=== PATIENT | male | born 1975 | race Caucasian/White ===

== ENCOUNTER 2017-09-29 10:45 | Inpatient (IN) | payer MEDICAID, SELFPAY ==
[2017-09-29 10:47] VITALS: BP 145/95; PULSE 98; RESP 16; TEMP 36.5; O2SAT 96; BMI 25.8
--- NOTE | 2017-09-29 11:20 | ED.DCSUM_ITS ---
- ER Visit Summary Date of Service: 09/29/17 Chief Complaint: [] Alcohol and Valium abuse requesting detox History of Present Illness: The patient is a 41 M [] long history of alcohol and Valium abuse, history of a PE diagnosed March 2017 is currently on Eliquis. He is here with his sister patient and sister report that basically he has been has a long history of alcohol abuse he drinks at least 30 beers a day he supposed to be taking Valium as needed 10 twice daily for anxiety and depression however he has been abusing the Valium long-standing per the sister, he presents today because he indicated to family he is tired of being addicted and wanted detox the sister reports they spoke with [facility] yesterday they were told to bring him in yesterday he was brought in today he has had no fever no cough no chest pain no abdominal pain, he denies any other history indicates he does not know why he had a DVT there is no history of suicidal ideation, he occasionally uses marijuana and has experimented in the distant past with amphetamines but basically he abuses alcohol as above and Valium He woke today felt slightly jittery drink 10 beers and took two 10 mg Valium tablets and then came to the emergency department Physical Examination: [] His vital signs are within normal limits he is awake and alert his sisters in the room there is no psychomotor agitation his HEENT exam is unremarkable the neck is supple the lungs are clear the heart tones are unremarkable abdomen soft nontender is moving all 4 extremities there is no tremor his speech is easy to understand Test Results: [] Emergency Department Course and Treatment: [] His complaints screening labs are obtained, hugo lyon is not available to do an assessment on him today per staff Screening labs unremarkable his tox screen shows alcohol and benzodiazepine see all of his reports, had a long conversation with the sister and the patient apparently she is under the impression that he needs to be admitted medically based on our conversation with hugo ly[facility], she is concerned that if he is discharged home, they live an hour away, he will eventually withdrawal have complications from his drug abuse, and again based on her conversation with hugo lyon she indicates they told her he might require medical admission given his heavy alcohol abuse and the benzodiazepine abuse given all that I have contacted the hospitalist service to the patient for further management options remains awake and alert with no complaints no psychomotor agitation or tremor or confusion Treatment Plan: [] Disposition: [] Admission pending evaluation by hospitalist concern for withdrawal Impression: [] Alcohol and benzodiazepine abuse This note was generated with iodine dictation software. It may contain incorrect words, spelling, and punctuation that were not noted in review of the chart prior to signing ED Disposition - Plan for ED Patient: Chief Complaint: Subst Abuse Referrals: [facility] Doctor,Out of [NON-STAFF] -
[2017-09-29 11:43] LABS: Absolute Lymphocyte Count 0.97 X10^3/ul (0.83-4.51); Absolute Neutrophil Count 4.7 X10^3/uL (2.0-7.7); Basophil# 0.01 X10^3/uL; Basophil% 0.2 % (0-1); Eosinophil# 0.04 X10^3/uL; Eosinophils% 0.6 % (0-5); Hemoglobin 14.8 g/dl (13.0-16.5); Lymphocyte # 0.97 X10^3/ul (4.0); Lymphocyte % 15.7 % (19-41); Mean Corp Hgb Conc 33.6 g/gl (32-36); Mean Corpuscular Hgb 31.6 pg (27.0-32.0); Mean Corpuscular Volume 93.8 fL (80-94); Mean Platelet Vol. 9.7 fl (6.2-12.0); Monocyte# 0.49 X10^3/uL; Monocyte% 7.9 % (0-10); Neutrophil # 4.67 X10^3/uL (2.7-7.7); Neutrophil % 75.6 % (47-70); Platelet Count 180 K/mm3 (150-450); RBC Distribution Width CV 13.8 % (11.6-14.6); RBC Distribution Width SD 47.3 fl (35.1-43.9); Red Blood Count 4.69 M/mm3 (4.6-6.2); White Blood Count 6.2 K/mm3 (4.4-11.0)
[2017-09-29 11:45] LABS: Bacteria 0 SEEN /hpf (None Seen); Mucous, Urine 0 SEEN /hpf (<or=2+); Red Blood Cells-Urine 0 SEEN /hpf (0-5); Squamous Epithelial Cells - UA 0 SEEN /hpf (0-5); White Blood Cells 0 SEEN /hpf (0-5)
[2017-09-29 11:46] LABS: POSITIVE COUNT NO; POSITIVE DIFFERENTIAL NO; POSITIVE MORPHOLOGY NO
[2017-09-29 11:47] LABS: Color, Urine Yellow (Yellow); Glucose, Dipstick Normal (Normal); Ketone-Dipstick Negative (Negative); Leukocyte Esterase-Dipstick Negative /ul (Negative); Nitrite-Dipstick Negative (Negative); Occult Blood-Urine Negative /ul (Negative); Protein-Dipstick Negative (Negative); Specific Gravity, Urine 1.005 (1.002-1.030); Urine Bilirubin Dipstick Negative (Negative); Urine Clarity Clear (Clear); Urine Urobilinogen Normal (Normal)
[2017-09-29 11:58] LABS: ALB/GLOB Ratio 0.9 RATIO (0.9-2.4); AST(SGOT) 52 U/L (15-37); Alanine Aminotransfer ALT/SGPT 45 U/L (16-61); Albumin, Serum 3.7 g/dL (3.2-5.0); Alkaline Phosphatase 85 U/L (45-117); Anion Gap 8 (5-15); BUN 5 mg/dL (7-18); BUN/Creat Ratio 7.4 RATIO (10-20); Calcium,Total 8.9 mg/dL (8.5-10.1); Chloride 104 mmol/L (98-107); Creatinine, Serum 0.68 mg/dL (0.70-1.30); EST Glomerular Filtration Rate 137 mL/min (>60); Est Glom Filt Rate - Afr Amer 166 mL/min (>60); Globulin 4.3 g/dL (2.2-4.2); Glucose 93 mg/dL (74-106); Potassium 3.4 mmol/L (3.5-5.1); Sodium Level 139 mmol/L (136-145)
[2017-09-29 12:02] LABS: Amphetamine Urine VISTA NEGATIVE (<1000 ng/mL); Barbiturate Urine VISTA NEGATIVE (< 200 ng/mL); Benzodiazepine Urine VISTA POSITIVE (< 200 ng/mL); Cocaine Urine VISTA NEGATIVE (< 300 ng/mL); Ecstacy Urine VISTA NEGATIVE (< 500 ng/mL); Methadone Urine VISTA NEGATIVE (< 300 ng/mL); PCP Urine VISTA NEGATIVE (< 25 ng/mL); THC Urine VISTA NEGATIVE (< 50 ng/mL); Vista UDS pH Range 6
--- NOTE | 2017-09-29 12:42 | HP.PCM_ITS ---
Problem List (1) History of pulmonary embolus (PE) Status: Chronic (2) Alcohol dependence syndrome Status: Chronic (3) Benzodiazepine dependence, continuous Status: Chronic (4) Depression Status: Chronic (5) Tobacco dependence Status: Chronic (6) Alcohol use Status: Acute History of Present Illness Date of Admission: 09/29/17 Chief Complaint: Alcohol and benzodiazepine use The patient is a 41 year old M with past medical history significant for polysubstance abuse including alcohol as well as benzodiazepine, history of pulmonary embolism who presented to the emergency department wanting to detox. Patient apparently contacted Chetan Callaway earlier on in the week to seek assistance with regards to his substance abuse. He presented to the emergency department wanting to detox. His last alcohol use was on the day of his admission. He admits his drinking almost 30 cans of beer on a daily basis. He is also on benzodiazepines and is apparently weaning himself off his last use also on the day of admission have been taking 10 mg of Valium. Discussions were held with the patient in the emergency department regarding management decisions and the dilemma in view of his continued use of benzos and the fact that he may not be able to be weaned off the benzos on this we find an accepting primary care physician who will be agreeable to help him wean off. In any case decision was made to admit patient with plans to consult Chetan Callaway in a.m. to assist. Past Medical History Past Medical History (Chronic Problems): Chronic Problems History of pulmonary embolus (PE) (Chronic) Alcohol dependence syndrome (Chronic) Benzodiazepine dependence, continuous (Chronic) Depression (Chronic) Tobacco dependence (Chronic) Allergies No Known Allergies Allergy (Verified 09/29/17 10:46) Home Medications: Ambulatory Orders Medication Instructions Recorded Apixaban [Eliquis] 5 mg PO DAILY 09/29/17 Diazepam [Diazepam] 10 mg PO DAILY PRN PRN 09/29/17 Smoking Status: Current every day smoker - *Family History Maternal History Items: No pertinent history Review of Systems Constitutional: Denies: Anorexia, Chills, Fever, Night Sweats, Weight Change HEENT: Denies: Head Aches, Sinus Congestion, Sinus Drainage Cardiovascular: Denies: Chest Pain, Orthopnea, Palpitations, Paroxysmal Noc. Dyspnea Respiratory: Denies: Cough, Shortness of breath at rest, Shortness of breath upon exertion, Sputum production Gastrointestinal: Denies: Abdominal Pain, Hematemesis, Hematochezia, Nausea, Melena, Vomiting Genitourinary: Denies: Dysuria, Frequency, Hematuria, Urgency Musculoskeletal: Denies: Joint Pain, Joint Tenderness Psychiatric: Reports: Anxiety, Depression Hematologic/ Lymphatic: Denies: Easy Bruising, Easy Bleeding VTE Information - Inpt Only VTE Present on Admission: No VTE Pharm Prophylaxis ordered?: Yes Patient Problems: Active and Suspected Problems Alcohol use (Acute) Objective: GENERAL: Appears anxious with some tremors at rest. HEENT: Clear conjunctiva, NECK; supple, normal thyroid, CHEST: Diminished to auscultation bilaterally, HEART: Regular S1 S2, no audible murmurs ABDOMEN: soft, non-tender, normoactive bowel sounds, RECTAL: deferred EXTREMITIES: No edema, no clubbing, no cyanosis. [employer]OR: Awake, no lateralizing signs. SKIN: No rash - Physical Exam Vital Signs Temp Pulse Resp BP Pulse Ox 97.7 F L 98 16 145/95 H 96 09/29/17 10:47 09/29/17 10:47 09/29/17 10:47 09/29/17 10:47 09/29/17 10:47 Oxygen Delivery Method Room Air Weight: 81.647 kg Body Mass Index (BMI) 25.8 Laboratory Tests Past 24 Hrs 09/29/17 09/29/17 09/29/17 11:35 11:35 11:35 WBC 6.2 RBC 4.69 Hgb 14.8 Hct 44.0 MCV 93.8 MCH 31.6 MCHC 33.6 RDW 13.8 RDW Differential 47.3 H Plt Count 180 MPV 9.7 Immature Gran % (Auto) 0.000 Neut % (Auto) 75.6 H Lymph % (Auto) 15.7 L Dare % (Auto) 7.9 Eos % (Auto) 0.6 Baso % (Auto) 0.2 Absolute Neuts (auto) 4.7 Absolute Lymphs (auto) 0.97 Total Counted Not Reportable Sodium 139 Potassium 3.4 L Chloride 104 Carbon Dioxide 27.0 Anion Gap 8 BUN 5 L Creatinine 0.68 L Estim Creat Clear Calc 149.10 Est GFR (MDRD) Af Amer 166 Est GFR (MDRD) Non-Af 137 BUN/Creatinine Ratio 7.4 L Glucose 93 Calcium 8.9 Total Bilirubin 0.40 AST 52 H ALT 45 Alkaline Phosphatase 85 Total Protein 8.0 Albumin 3.7 Globulin 4.3 H Albumin/Globulin Ratio 0.9 Urine Color Urine Clarity Urine pH Ur Specific [place] Urine Protein Urine Glucose (UA) Urine Ketones Urine Occult Blood Urine Nitrite Urine Bilirubin Urine Urobilinogen Ur Leukocyte Esterase Urine RBC Urine WBC Ur Squamous Epith Cells Urine Bacteria Urine Mucus Urine Opiates Screen Urine Methadone Screen Ur Barbiturates Screen Ur Phencyclidine Scrn Ur Amphetamines Screen U Methamphetamin-MDMA U Benzodiazepines Scrn Urine Cocaine Screen U Cannabinoids Screen Ur Drug Screen Comment Ethyl Alcohol 172.0 09/29/17 09/29/17 11:40 11:40 WBC RBC Hgb Hct MCV MCH MCHC RDW RDW Differential Plt Count MPV Immature Gran % (Auto) Neut % (Auto) Lymph % (Auto) Dare % (Auto) Eos % (Auto) Baso % (Auto) Absolute Neuts (auto) Absolute Lymphs (auto) Total Counted Sodium Potassium Chloride Carbon Dioxide Anion Gap BUN Creatinine Estim Creat Clear Calc Est GFR (MDRD) Af Amer Est GFR (MDRD) Non-Af BUN/Creatinine Ratio Glucose Calcium Total Bilirubin AST ALT Alkaline Phosphatase Total Protein Albumin Globulin Albumin/Globulin Ratio Urine Color Yellow Urine Clarity Clear Urine pH 6.0 Ur Specific [place] 1.005 Urine Protein Negative Urine Glucose (UA) Normal Urine Ketones Negative Urine Occult Blood Negative Urine Nitrite Negative Urine Bilirubin Negative Urine Urobilinogen Normal Ur Leukocyte Esterase Negative Urine RBC 0 SEEN Urine WBC 0 SEEN Ur Squamous Epith Cells 0 SEEN Urine Bacteria 0 SEEN Urine Mucus 0 SEEN Urine Opiates Screen NEGATIVE Urine Methadone Screen NEGATIVE Ur Barbiturates Screen NEGATIVE Ur Phencyclidine Scrn NEGATIVE Ur Amphetamines Screen NEGATIVE U Methamphetamin-MDMA NEGATIVE U Benzodiazepines Scrn POSITIVE H Urine Cocaine Screen NEGATIVE U Cannabinoids Screen NEGATIVE Ur Drug Screen Comment Ethyl Alcohol Assessment/Plan Active and Suspected Problems Alcohol use (Acute) Patient is a 41 year old gentleman with history of polysubstance abuse including Valium and alcohol who presented to the emergency department seeking assistance with detoxification 1. Acute alcohol abuse with early signs of withdrawal. Patient was offered the option of being admitted to be initiated on the [facility] alcohol withdrawal protocol. At the time of my dictation patient was still deciding whether to stay or to go home 2. Benzodiazepine with intermittent use of Valium did discuss with patient and the sister who were in the room to reach out to his primary care physician who apparently prescribes the Valium to assist with a tapering with regards to the weaning 3. History of bilateral pulmonary embolism 5 months ago patient was seen and managed at [facility] on Eliquis 5 mg p.o. twice daily resume 4. Tobacco dependence counseled on cessation, offered nicotine patch for tobacco cravings Code Visit Inpatient E&M: 52139 Init Hosp L3
[2017-09-29 13:56] VITALS: BP 132/87; PULSE 97; RESP 18; TEMP 36.6; O2SAT 97; BMI 26.6; BMI 26.7
[2017-09-29 14:00] VITALS: BP 132/87; PULSE 97; RESP 18; TEMP 36.6
[2017-09-29] MEDS: cloNIDine HCl 0.1 MG Tablet PO ×3 (14:24→21:52)
[2017-09-29] MEDS: LORazepam 1 MG Tablet PO ×3 (14:33→21:51)
[2017-09-29] MEDS: Lactated Ringers 1,000 ML 125 ML IV (14:33)
[2017-09-29 17:33] VITALS: BP 137/86; PULSE 97; RESP 16; TEMP 36.4; O2SAT 98
[2017-09-29 17:36] VITALS: BP 137/86; PULSE 97; RESP 16; TEMP 36.4
[2017-09-29] MEDS: Ondansetron ODT 4 MG Tablet PO (17:40)
[2017-09-29 21:44] VITALS: BP 145/97; PULSE 66; RESP 16; TEMP 36.6; O2SAT 98
[2017-09-29] MEDS: traZODone 50 MG Tablet PO (21:53)
[2017-09-29] MEDS: APIXABAN 5 MG TABLET PO (21:54)
[2017-09-30] VITALS (7 sets, daily range): BP systolic 107–145; BP diastolic 67–101; PULSE 61–77; RESP 16–18; TEMP 36.4–37; O2SAT 97–100
[2017-09-30] MEDS: cloNIDine HCl 0.1 MG Tablet PO ×6 (02:19→22:04)
[2017-09-30] MEDS: LORazepam 1 MG Tablet PO ×5 (02:19→22:04)
[2017-09-30] MEDS: Multivitamins,Ther W-Minerals Tablet 1 TABLET PO (08:47)
[2017-09-30] MEDS: Folic Acid 1 MG Tablet PO (08:47)
[2017-09-30] MEDS: Thiamine Hydrochloride 100 MG Tablet PO (08:47)
--- NOTE | 2017-09-30 10:00 | PCM.PN.HOSP ---
Patient Problems: Active and Suspected Problems Alcohol use (Acute) Subjective: Feeling better, but still with nausea--no vomiting. Vitals/I&O's: Vital Signs Temp Pulse Resp BP Pulse Ox 36.4 C L 72 16 130/85 H 99 09/30/17 06:00 09/30/17 06:00 09/30/17 06:00 09/30/17 06:00 09/30/17 06:00 Oxygen Delivery Method Room Air Weight: 84.414 kg Body Mass Index (BMI) 26.6 Intake and Output for Last 24 Hours 09/28/17 09/29/17 09/30/17 23:59 23:59 23:59 Intake Total 621 / 621 1999 Balance 621 / 621 1999 General: Alert, Cooperative, No apparent distress HEENT: Atraumatic, Normocephalic Neck: No Nodes, Thyroid Normal Size and Texture Lungs: Clear to auscultation, Normal air movement, No rhonchi, No wheeze Cardiovascular: Regular rate, Regular Rhythm, Normal S1, Normal S2, No murmurs Abdomen: Bowel Sounds Present, Soft, Non Tender, Non-Distended, No Hepato-splenomegaly Extremities: No edema, No Calf Tenderness Skin: - - faint macules on upper chest with subtle excoriations. Musculoskeletal: No Tenderness to Palpation of Joints or Extremities Psych/Mental Status: Normal Affect, Appropriate Current Medications Acetaminophen (Tylenol) 500 mg PO Q4H PRN PRN PRN Reason: Temp > 100.4 F Al Hydroxide/Mg Hydroxide (Mylanta Ii) 30 ml PO Q6H PRN PRN PRN Reason: dyspesia Apixaban (Eliquis) 5 mg PO BID [facility] Last Admin: 09/29/17 21:54 Dose: 5 mg Bisacodyl (Dulcolax) 10 mg RECTAL DAILY PRN PRN Reason: Constipation Clonidine (Catapres) 0.1 mg PO Q4 [facility] Last Admin: 09/30/17 06:11 Dose: 0.1 mg Dicyclomine HCl (Bentyl) 20 mg PO Q6H PRN PRN PRN Reason: abdominal discomfort Folic Acid (Folic Acid) 1 mg PO DAILY@0800 [facility] Last Admin: 09/30/17 08:47 Dose: 1 mg Hydroxyzine Pamoate (Vistaril Pamoate Capsule) 50 mg PO Q6H PRN PRN PRN Reason: Mild Anxiety (score 1/3) Ibuprofen (Motrin) 600 mg PO Q8H PRN PRN PRN Reason: Mild-Moderate Pain (1-5/10) Loperamide HCl (Imodium) 2 - 4 mg PO UD PRN PRN Reason: LOOSE STOOLS Lorazepam (Ativan) 1 mg PO Q6H MARIA L PRN Reason: Taper Stop: 10/02/17 17:59 Last Admin: 09/30/17 06:12 Dose: 1 mg Magnesium Hydroxide (Milk Of Magnesia) 30 ml PO DAILY PRN PRN PRN Reason: Constipation Methocarbamol (Methocarbamol) 750 mg PO Q6H PRN PRN PRN Reason: Muscle Aches Multivitamins/Minerals ([facility]) [facility] Last Admin: 09/30/17 08:47 Dose: 1 tablet Nicotine (Nicoderm Cq (Pbkc)) 21 mg TRANSDERM. DAILY [facility] Last Admin: 09/29/17 14:32 Dose: 21 mg Ondansetron HCl (Zofran Odt) 4 mg PO Q6H PRN PRN PRN Reason: NAUSEA Last Admin: 09/29/17 17:40 Dose: 4 mg Pramipexole Dihydrochloride (Mirapex) 0.25 mg PO Q12H PRN PRN PRN Reason: Restless legs Quetiapine Fumarate (Seroquel) 25 mg PO Q6H PRN PRN PRN Reason: Moderate Anxiety (score 2/3) Senna (Senokot) 1 tablet PO QHS PRN PRN Reason: Constipation Sodium Chloride () 5 - 30 ml IV UD PRN PRN Reason: SALINE FLUSH Thiamine HCl (Vitamin B1) [facility] Last Admin: 09/30/17 08:47 Dose: 100 mg Trazodone HCl (Desyrel) 50 mg PO QHS [facility] Last Admin: 09/29/17 21:53 Dose: 50 mg Medical Necessity - Tobacco Use Smoking Status: Current every day smoker Assessment/Plan Active and Suspected Problems Alcohol use (Acute) 1. acute alcohol withdrawal. on ativan continue B12 and folate, no evidence of DTs at this time [facility] to see and assess. 2. chronic Benzodiazepine use pt states that he is prescribed it, but I could not find any evidence on [place] does state that recently, he has not been using it every day. will need to follow up with PCP about tapering it off over several weeks, if necessary 3. Skin lesions: self-reported i don't appreciate much did recommend he follow up with Dermatology (primarily for routine skin exam) Code Visit Inpatient E&M: 10336 Subs Hosp L2
--- NOTE | 2017-09-30 10:06 | PN_ITS ---
Patient Problems: Active and Suspected Problems Alcohol use (Acute) Subjective: Feeling better, but still with nausea--no vomiting. Vitals/I&O's: Vital Signs Temp Pulse Resp BP Pulse Ox 36.4 C L 72 16 130/85 H 99 09/30/17 06:00 09/30/17 06:00 09/30/17 06:00 09/30/17 06:00 09/30/17 06:00 Oxygen Delivery Method Room Air Weight: 84.414 kg Body Mass Index (BMI) 26.6 Intake and Output for Last 24 Hours 09/28/17 09/29/17 09/30/17 23:59 23:59 23:59 Intake Total 621 / 621 1999 Balance 621 / 621 1999 General: Alert, Cooperative, No apparent distress HEENT: Atraumatic, Normocephalic Neck: No Nodes, Thyroid Normal Size and Texture Lungs: Clear to auscultation, Normal air movement, No rhonchi, No wheeze Cardiovascular: Regular rate, Regular Rhythm, Normal S1, Normal S2, No murmurs Abdomen: Bowel Sounds Present, Soft, Non Tender, Non-Distended, No Hepato- splenomegaly Extremities: No edema, No Calf Tenderness Skin: - - faint macules on upper chest with subtle excoriations. Musculoskeletal: No Tenderness to Palpation of Joints or Extremities Psych/Mental Status: Normal Affect, Appropriate Current Medications Acetaminophen (Tylenol) 500 mg PO Q4H PRN PRN PRN Reason: Temp > 100.4 F Al Hydroxide/Mg Hydroxide (Mylanta Ii) 30 ml PO Q6H PRN PRN PRN Reason: dyspesia Apixaban (Eliquis) 5 mg PO BID [facility] Last Admin: 09/29/17 21:54 Dose: 5 mg Bisacodyl (Dulcolax) 10 mg RECTAL DAILY PRN PRN Reason: Constipation Clonidine (Catapres) 0.1 mg PO Q4 [facility] Last Admin: 09/30/17 06:11 Dose: 0.1 mg Dicyclomine HCl (Bentyl) 20 mg PO Q6H PRN PRN PRN Reason: abdominal discomfort Folic Acid (Folic Acid) 1 mg PO DAILY@0800 [facility] Last Admin: 09/30/17 08:47 Dose: 1 mg Hydroxyzine Pamoate (Vistaril Pamoate Capsule) 50 mg PO Q6H PRN PRN PRN Reason: Mild Anxiety (score 1/3) Ibuprofen (Motrin) 600 mg PO Q8H PRN PRN PRN Reason: Mild-Moderate Pain (1-5/10) Loperamide HCl (Imodium) 2 - 4 mg PO UD PRN PRN Reason: LOOSE STOOLS Lorazepam (Ativan) 1 mg PO Q6H MARIA L PRN Reason: Taper Stop: 10/02/17 17:59 Last Admin: 09/30/17 06:12 Dose: 1 mg Magnesium Hydroxide (Milk Of Magnesia) 30 ml PO DAILY PRN PRN PRN Reason: Constipation Methocarbamol (Methocarbamol) 750 mg PO Q6H PRN PRN PRN Reason: Muscle Aches Multivitamins/Minerals ([facility]ivitamin With Minerals) [facility] Last Admin: 09/30/17 08:47 Dose: 1 tablet Nicotine (Nicoderm Cq (Pbkc)) 21 mg TRANSDERM. DAILY [facility] Last Admin: 09/29/17 14:32 Dose: 21 mg Ondansetron HCl (Zofran Odt) 4 mg PO Q6H PRN PRN PRN Reason: NAUSEA Last Admin: 09/29/17 17:40 Dose: 4 mg Pramipexole Dihydrochloride (Mirapex) 0.25 mg PO Q12H PRN PRN PRN Reason: Restless legs Quetiapine Fumarate (Seroquel) 25 mg PO Q6H PRN PRN PRN Reason: Moderate Anxiety (score 2/3) Senna (Senokot) 1 tablet PO QHS PRN PRN Reason: Constipation Sodium Chloride () 5 - 30 ml IV UD PRN PRN Reason: SALINE FLUSH Thiamine HCl (Vitamin B1) [facility] Last Admin: 09/30/17 08:47 Dose: 100 mg Trazodone HCl (Desyrel) 50 mg PO QHS [facility] Last Admin: 09/29/17 21:53 Dose: 50 mg Medical Necessity - Tobacco Use Smoking Status: Current every day smoker Assessment/Plan Active and Suspected Problems Alcohol use (Acute) 1. acute alcohol withdrawal. * on ativan * continue B12 and folate, * no evidence of DTs at this time * [facility] to see and assess. 2. chronic Benzodiazepine use * pt states that he is prescribed it, but I could not find any evidence on [place] * does state that recently, he has not been using it every day. * will need to follow up with PCP about tapering it off over several weeks, if necessary 3. Skin lesions: * self-reported * i don't appreciate much * did recommend he follow up with Dermatology (primarily for routine skin exam) Code Visit Inpatient E&M: 40105 Subs Hosp L2
[2017-09-30] MEDS: APIXABAN 5 MG TABLET PO ×2 (10:38→22:05)
[2017-09-30] MEDS: traZODone 50 MG Tablet PO (22:05)
[2017-10-01] MEDS: LORazepam 1 MG Tablet PO ×5 (05:02→22:09)
[2017-10-01] MEDS: cloNIDine HCl 0.1 MG Tablet PO ×5 (05:02→22:09)
[2017-10-01 05:05] VITALS: BP 124/82; PULSE 62; RESP 16; TEMP 36.6
[2017-10-01 09:15] VITALS: BP 98/53; PULSE 72; RESP 18; TEMP 36.3; O2SAT 96
--- NOTE | 2017-10-01 09:23 | PCM.PN.HOSP ---
Patient Problems: Active and Suspected Problems Alcohol use (Acute) Subjective: Feeling better. Tolerating diet. Some tremulousness, but improved. Vitals/I&O's: Vital Signs Temp Pulse Resp BP Pulse Ox 36.3 C L 72 18 98/53 L 96 10/01/17 09:15 10/01/17 09:15 10/01/17 09:15 10/01/17 09:15 10/01/17 09:15 Oxygen Delivery Method Room Air Weight: 84.414 kg Body Mass Index (BMI) 26.6 Intake and Output for Last 24 Hours 09/29/17 09/30/17 10/01/17 23:59 23:59 23:59 Intake Total 621 / 621 2199 / 0 Balance 621 / 621 2199 / 0 General: Alert, Cooperative, No apparent distress HEENT: Atraumatic, Normocephalic Neck: No Nodes, Thyroid Normal Size and Texture Lungs: Clear to auscultation, Normal air movement, No rhonchi, No wheeze Cardiovascular: Regular rate, Regular Rhythm, Normal S1, Normal S2, No murmurs Abdomen: Bowel Sounds Present, Soft, Non Tender, Non-Distended Extremities: No edema, No Calf Tenderness Skin: No rashes, No breakdown Psych/Mental Status: Normal Affect, Appropriate Current Medications Acetaminophen (Tylenol) 500 mg PO Q4H PRN PRN PRN Reason: Temp > 100.4 F Al Hydroxide/Mg Hydroxide (Mylanta Ii) 30 ml PO Q6H PRN PRN PRN Reason: dyspesia Apixaban (Eliquis) 5 mg PO BID [facility] Last Admin: 09/30/17 22:05 Dose: 5 mg Bisacodyl (Dulcolax) 10 mg RECTAL DAILY PRN PRN Reason: Constipation Clonidine (Catapres) 0.1 mg PO Q4 [facility] Last Admin: 10/01/17 05:02 Dose: 0.1 mg Dicyclomine HCl (Bentyl) 20 mg PO Q6H PRN PRN PRN Reason: abdominal discomfort Folic Acid (Folic Acid) 1 mg PO DAILY@0800 [facility] Last Admin: 09/30/17 08:47 Dose: 1 mg Hydroxyzine Pamoate (Vistaril Pamoate Capsule) 50 mg PO Q6H PRN PRN PRN Reason: Mild Anxiety (score 1/3) Ibuprofen (Motrin) 600 mg PO Q8H PRN PRN PRN Reason: Mild-Moderate Pain (1-5/10) Loperamide HCl (Imodium) 2 - 4 mg PO UD PRN PRN Reason: LOOSE STOOLS Lorazepam (Ativan) 1 mg PO Q6H MARIA L PRN Reason: Taper Stop: 10/02/17 17:59 Last Admin: 10/01/17 05:02 Dose: 1 mg Magnesium Hydroxide (Milk Of Magnesia) 30 ml PO DAILY PRN PRN PRN Reason: Constipation Methocarbamol (Methocarbamol) 750 mg PO Q6H PRN PRN PRN Reason: Muscle Aches Multivitamins/Minerals ([facility] Min[facility]) [facility] Last Admin: 09/30/17 08:47 Dose: 1 tablet Nicotine (Nicoderm Cq (Pbkc)) 21 mg TRANSDERM. DAILY [facility] Last Admin: 09/30/17 10:38 Dose: 21 mg Ondansetron HCl (Zofran Odt) 4 mg PO Q6H PRN PRN PRN Reason: NAUSEA Last Admin: 09/29/17 17:40 Dose: 4 mg Pramipexole Dihydrochloride (Mirapex) 0.25 mg PO Q12H PRN PRN PRN Reason: Restless legs Quetiapine Fumarate (Seroquel) 25 mg PO Q6H PRN PRN PRN Reason: Moderate Anxiety (score 2/3) Senna (Senokot) 1 tablet PO QHS PRN PRN Reason: Constipation Sodium Chloride () 5 - 30 ml IV UD PRN PRN Reason: SALINE FLUSH Thiamine [facility] ([facility]amin B1) [facility] Last Admin: 09/30/17 08:47 Dose: 100 mg Trazodone HCl (Desyrel) 50 mg PO QHS [facility] Last Admin: 09/30/17 22:05 Dose: 50 mg Medical Necessity - Tobacco Use Smoking Status: Current every day smoker Assessment/Plan Active and Suspected Problems Alcohol use (Acute) 1. acute alcohol withdrawal. on ativan continue B12 and folate, no evidence of DTs at this time [facility] to see and assess. pt undecided on treatment plans at discharge. wean ativan. 2. chronic Benzodiazepine use pt states that he is prescribed it, but I could not find any evidence on [place] does state that recently, he has not been using it every day. will need to follow up with PCP about tapering it off over several weeks, if necessary 3. Skin lesions: self-reported i don't appreciate much did recommend he follow up with Dermatology (primarily for routine skin exam) Code Visit Inpatient E&M: 04409 Subs Hosp L2
[2017-10-01] MEDS: Thiamine Hydrochloride 100 MG Tablet PO (10:28)
[2017-10-01] MEDS: Folic Acid 1 MG Tablet PO (10:28)
[2017-10-01] MEDS: Multivitamins,Ther W-Minerals Tablet 1 TABLET PO (10:28)
[2017-10-01] MEDS: APIXABAN 5 MG TABLET PO ×2 (10:29→22:09)
[2017-10-01] MEDS: hydrOXYzine PAM 25 MG Capsule 50 MG PO ×2 (10:29→18:33)
[2017-10-01] MEDS: Dicyclomine 10 MG Capsule 20 MG PO (10:29)
[2017-10-01] MEDS: Magnesium Hydroxide 30 ML UDC PO (10:29)
[2017-10-01 14:46] VITALS: BP 112/66; PULSE 72; RESP 16; TEMP 36.4; O2SAT 97
[2017-10-01 18:27] VITALS: BP 125/77; PULSE 73; RESP 16; TEMP 36.3; O2SAT 100
[2017-10-01 22:06] VITALS: BP 129/92; PULSE 66; RESP 16; TEMP 37.2; O2SAT 96
[2017-10-01] MEDS: traZODone 50 MG Tablet PO (22:09)
[2017-10-02 04:10] LABS: HEPATITIS B SURFACE AG Negative (Negative); Hepatitis A IgM Antibody Negative (Negative); Hepatitis B Core AB IgM Negative (Negative)
[2017-10-02] MEDS: LORazepam 1 MG Tablet PO (05:59)
[2017-10-02] MEDS: cloNIDine HCl 0.1 MG Tablet PO ×2 (05:59→09:50)
[2017-10-02 06:01] VITALS: BP 126/78; PULSE 78; RESP 14; TEMP 36.6; O2SAT 94
[2017-10-02 08:00] VITALS: BP 120/78; PULSE 68; RESP 18; TEMP 36.9; O2SAT 98
[2017-10-02] MEDS: Thiamine Hydrochloride 100 MG Tablet PO (08:06)
[2017-10-02] MEDS: Multivitamins,Ther W-Minerals Tablet 1 TABLET PO (08:06)
[2017-10-02] MEDS: Folic Acid 1 MG Tablet PO (08:06)
--- NOTE | 2017-10-02 09:14 | PCM.PN.HOSP ---
Patient Problems: Active and Suspected Problems Alcohol use (Acute) Subjective: Feeling good. tolerating PO. less tremulousness. Vitals/I&O's: Vital Signs Temp Pulse Resp BP Pulse Ox 36.9 C 68 18 120/78 98 10/02/17 08:00 10/02/17 08:00 10/02/17 08:00 10/02/17 08:00 10/02/17 08:00 Oxygen Delivery Method Room Air Weight: 84.414 kg Body Mass Index (BMI) 26.6 Intake and Output for Last 24 Hours 09/30/17 10/01/17 10/02/17 23:59 23:59 23:59 Intake Total 2199 Balance 2199 General: Alert, Cooperative, No apparent distress HEENT: Atraumatic, Normocephalic Neurological: - - minimal tremulousness. Psych/Mental Status: Normal Affect, Appropriate Current Medications Acetaminophen (Tylenol) 500 mg PO Q4H PRN PRN PRN Reason: Temp > 100.4 F Al Hydroxide/Mg Hydroxide (Mylanta Ii) 30 ml PO Q6H PRN PRN PRN Reason: dyspesia Apixaban (Eliquis) 5 mg PO BID [facility] Last Admin: 10/01/17 22:09 Dose: 5 mg Bisacodyl (Dulcolax) 10 mg RECTAL DAILY PRN PRN Reason: Constipation Clonidine (Catapres) 0.1 mg PO Q4 [facility] Last Admin: 10/02/17 05:59 Dose: 0.1 mg Dicyclomine HCl (Bentyl) 20 mg PO Q6H PRN PRN PRN Reason: abdominal discomfort Last Admin: 10/01/17 10:29 Dose: 20 mg Folic Acid (Folic Acid) 1 mg PO DAILY@0800 [facility] Last Admin: 10/02/17 08:06 Dose: 1 mg Hydroxyzine Pamoate (Vistaril Pamoate Capsule) 50 mg PO Q6H PRN PRN PRN Reason: Mild Anxiety (score 1/3) Last Admin: 10/01/17 18:33 Dose: 50 mg Ibuprofen (Motrin) 600 mg PO Q8H PRN PRN PRN Reason: Mild-Moderate Pain (1-5/10) Loperamide HCl (Imodium) 2 - 4 mg PO UD PRN PRN Reason: LOOSE STOOLS Lorazepam (Ativan) 1 mg PO Q6H [facility] PRN Reason: Taper Stop: 10/04/17 13:44 Last Admin: 10/02/17 05:59 Dose: 1 mg Magnesium Hydroxide (Milk Of Magnesia) 30 ml PO DAILY PRN PRN PRN Reason: Constipation Last Admin: 10/01/17 10:29 Dose: 30 ml Methocarbamol (Methocarbamol) 750 mg PO Q6H PRN PRN PRN Reason: Muscle Aches Multivitamins/Minerals ([facility]ivitamin With Minerals) [facility] Admin: 10/02/17 08:06 Dose: 1 tablet Nicotine (Nicoderm Cq (Pbkc)) 21 mg TRANSDERM. DAILY [facility] Last Admin: 10/01/17 10:29 Dose: 21 mg Ondansetron HCl (Zofran Odt) 4 mg PO Q6H PRN PRN PRN Reason: NAUSEA Last Admin: 09/29/17 17:40 Dose: 4 mg Pramipexole Dihydrochloride (Mirapex) 0.25 mg PO Q12H PRN PRN PRN Reason: Restless legs Quetiapine Fumarate (Seroquel) 25 mg PO Q6H PRN PRN PRN Reason: Moderate Anxiety (score 2/3) Senna (Senokot) 1 tablet PO QHS PRN PRN Reason: Constipation Sodium Chloride () 5 - 30 ml IV UD PRN PRN Reason: SALINE FLUSH Thiamine HCl (Vitamin B1) [facility] [place] Last Admin: 10/02/17 08:06 Dose: 100 mg Trazodone HCl (Desyrel) 50 mg PO QHS [facility] Last Admin: 10/01/17 22:09 Dose: 50 mg Medical Necessity - Tobacco Use Smoking Status: Current every day smoker Assessment/Plan Active and Suspected Problems Alcohol use (Acute) 1. acute alcohol withdrawal. on ativan continue B12 and folate, no evidence of DTs at this time [facility] to see and assess. pt to go to [facility] 2. chronic Benzodiazepine use pt states that he is prescribed it, but I could not find any evidence on [place] does state that recently, he has not been using it every day. will need to follow up with PCP about tapering it off over several weeks, if necessary 3. Skin lesions: self-reported i don't appreciate much did recommend he follow up with Dermatology (primarily for routine skin exam)
--- NOTE | 2017-10-02 09:18 | PCM.DC ---
- Discharge Diagnoses Current Active Problems: Current Active and Chronic Problems History of pulmonary embolus (PE) (Chronic) Alcohol dependence syndrome (Chronic) Benzodiazepine dependence, continuous (Chronic) Depression (Chronic) Tobacco dependence (Chronic) Alcohol use (Acute) You will use the following diet at home:: No restrictions Your food should be the consistency of: Regular Discharge Activity: Return to Normal Activity Call your doctor if you observe: Fever of 101 or Higher, Shortness of breath Allergies/Adverse Reactions: Allergies No Known Allergies Allergy (Verified 09/29/17 10:46) Medications to take at Discharge Apixaban [Eliquis] 5 mg PO BID 09/29/17 Diazepam 10 mg PO DAILY PRN PRN 09/29/17 Primary Care Physician: Amira Watts,Out of [NON-STAFF] - Please Follow Up With: dermatology - routine skin exam. When: next 6 months Please Follow Up With: [facility] When: today Proposed Discharge Date: 10/02/17
--- NOTE | 2017-10-02 09:28 | DS.PCM_ITS ---
Discharge Date and Diagnosis - Problem List Patient Problems: Active and Suspected Problems Alcohol use (Acute) Date of Admission: 09/29/17 Date of Discharge: 10/02/17 - Primary Discharge Diagnosis Active and Suspected Problems Alcohol use (Acute) - Secondary Discharge Diagnosis Chronic Problems History of pulmonary embolus (PE) (Chronic) Alcohol dependence syndrome (Chronic) Benzodiazepine dependence, continuous (Chronic) Depression (Chronic) Tobacco dependence (Chronic) Hospital Course and Treatment Operations: None Procedures: None Summary of Care Provided: The patient is a 41 year old M presents for acute alcohol withdrawal treatment. Pt was started on Ativan and did well. No severe symptoms, nor DTs. Pt will be going to [facility] for further treatment and counseling. Complicating his picture, is concominant use of Valium. Pt states he uses it sparingly. [] Discharge Diet: No Restrictions Discharge Activity: Return to Normal Activity Call your doctor if you observe: Fever of 101 or Higher, Shortness of breath Home Medications: Medications to take at Discharge Apixaban [Eliquis] 5 mg PO BID 09/29/17 Diazepam 10 mg PO DAILY PRN PRN 09/29/17 Primary Care Physician: [facility] ,Out of [NON-STAFF] - Please Follow Up With: dermatology - routine skin exam. When: next 6 months Please Follow Up With: [facility] When: today Disposition: Home Minutes spent on discharge:: 32 Patient Condition:: Good Medical Necessity - Tobacco Use Smoking Status: Current every day smoker Meaningful Use Info Meaningful Use Diagnoses (Choose all that apply): None applicable Code Visit Inpatient E&M: 22887 Disch Hosp
[2017-10-02 09:49] VITALS: BP 127/81; PULSE 71
[2017-10-02] MEDS: APIXABAN 5 MG TABLET PO (09:50)
[2017-10-02 10:00] VITALS: BP 120/78; PULSE 71; RESP 18; TEMP 36.9
[2017-10-02 10:50] VITALS: BP 120/78; PULSE 68; RESP 18; TEMP 36.9; O2SAT 98
[2017-10-02 11:27] LABS: Hep C Antibodies <0.1 s/co ratio (0.0-0.9)
== END 2017-10-02 10:50 | disposition home or self-care (01) | DRG 435 ==
LOC: ED 12:10 → MS3 13:10
PROVIDERS: Admitting Provider Internal Medicine; Emergency Provider Emergency Medicine
DX: F10.239 Alcohol dependence with withdrawal, unspecified (principal); Y90.6 Blood alcohol level of 120-199 mg/100 ml; F13.20 Sedative, hypnotic or anxiolytic dependence, uncomplicated; F17.200 Nicotine dependence, unspecified, uncomplicated; F32.9 Major depressive disorder, single episode, unspecified; F41.9 Anxiety disorder, unspecified; Z86.711 Personal history of pulmonary embolism; Z79.01 Long term (current) use of anticoagulants
CPT/HCPCS: 36415; 80053; 80074; 80307; 80320; 81001; 85025; 97802; 99285; 99406; J7120; A4216; G0480